=== PATIENT | female | born 2000 | race Caucasian/White ===

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

== ENCOUNTER → 2020-02-25 | Outpatient (CLI) | payer OTHER | LOC: US 14:48 | DX: Z34.03 Encounter for supervision of normal first pregnancy, third trimester (principal); Z3A.38 38 weeks gestation of pregnancy ==

== ENCOUNTER 2021-02-25 10:08 | Emergency (ER) | payer OTHER | END 2021-02-25 11:52 | disposition home or self-care (01) | LOC: ED 10:08 | DX: R21 Rash and other nonspecific skin eruption (principal) ==

== ENCOUNTER → 2021-03-08 | Outpatient (CLI) | payer OTHER | END | disposition home or self-care (01) | LOC: US 11:08 | PROVIDERS: ATTEND Nurse Practitioner Women's Health | DX: Z34.81 Encounter for supervision of other normal pregnancy, first trimester (principal); Z33.1 Pregnant state, incidental; Z3A.08 8 weeks gestation of pregnancy ==

== ENCOUNTER 2021-05-10 14:54 | Emergency (ER) | payer OTHER ==
[~2021-05-10] VITALS: Wt 81.6 kg
[2021-05-10] MEDS ORDERED: CLINDAMYCIN HC300 MG PO (18:24)
== END 2021-05-10 18:47 | disposition home or self-care (01) ==
LOC: ED 14:54
DX: L02.411 Cutaneous abscess of right axilla (principal)

== ENCOUNTER → 2021-05-12 | Outpatient (CLI) | payer OTHER ==
[~2021-05-12] MED LIST changes: +CLINDAMYCIN HC300 MG PO
== END ==
LOC: WOUNDCARE 11:52
PROVIDERS: ATTEND Nurse Practitioner
DX: T81.89XA Other complications of procedures, not elsewhere classified, initial encounter (principal); L02.411 Cutaneous abscess of right axilla; L73.2 Hidradenitis suppurativa; Z79.899 Other long term (current) drug therapy; Y83.8 Other surgical procedures as the cause of abnormal reaction of the patient, or of later complication, without mention of misadventure at the time of the procedure; Y92.238 Other place in hospital as the place of occurrence of the external cause

== ENCOUNTER 2022-08-04 16:26 | Emergency (ER) | payer OTHER ==
[~2022-08-04] VITALS: Ht 165.1 cm; Wt 83.9 kg
[2022-08-04 17:25] LABS: BILIRUBIN Negative (Negative); BLOOD 3+ (Negative); CLARITY Clear (Clear); COLOR Yellow (Yellow); GLUCOSE Negative (Negative); KETONE Trace (Negative); LEUKO ESTERASE Negative (Negative); NITRITE Negative (Negative); SPECIFIC GRAVITY >= 1.030 (1.001-1.030); UROBILINOGEN 0.2 E.U./dl (0.0-1.0)
[2022-08-04 17:41] LABS: BASO % 0.5 % (0.0-1.0); EOS # 0.2 10*3/uL (0.0-0.4); EOS % 3.2 % (1.0-4.0); HEMATOCRIT 37.4 % (37.0-47.0); LYMPH # 1.7 10*3/uL (1.3-4.4); LYMPH % 28.8 % (27.0-41.0); MEAN CELL VOLUME 89.9 fl (81.0-99.0); MEAN CORPUSCULAR HGB 29.3 pg (27.0-31.0); MEAN CORPUSCULAR HGB CONC 32.6 g/dl (33.0-37.0); MEAN PLATELET VOLUME 9.3 fl (9.6-12.3); MONO # 0.4 10*3/uL (0.1-1.0); MONO % 6.1 % (3.0-9.0); NEUT # 3.6 10*3/uL (2.3-7.9); NEUT % 61.1 % (47.0-73.0); PLATELET COUNT AUTOMATED 286 10*3/uL (130-400); RED BLOOD COUNT 4.16 10*6/uL (4.10-5.10); RED CELL DISTRI WIDTH 13.5 % (0-14.5); WHITE BLOOD COUNT 5.9 10*3/uL (4.8-10.8)
[2022-08-04 18:00] LABS: RBC TNTC rbc/hpf (0-2)
[2022-08-04 18:01] LABS: ALKALINE PHOSPHATASE 127 U/L (45-117); BUN 18 mg/dl (7-24); CHLORIDE 110 mmol/L (98-107); POTASSIUM 3.8 mmol/L (3.5-5.1); SGOT/AST 6 IU/L (3-35); SGPT/ALT 17 U/L (12-78); SODIUM 142 mmol/L (136-145); TOTAL PROTEIN 7.3 gm/dL (6.4-8.2)
[2022-08-04] MEDS ORDERED: PROVERA10 MG PO (18:26)
== END 2022-08-04 18:41 | disposition home or self-care (01) ==
LOC: ED 16:26
PROVIDERS: Emergency Medicine
DX: N93.8 Other specified abnormal uterine and vaginal bleeding (principal)

== ENCOUNTER → 2023-07-03 | Outpatient (CLI) | payer OTHER ==
[~2023-07-03] MED LIST changes: +PROVERA10 MG PO
== END | disposition home or self-care (01) ==
LOC: US 10:30
PROVIDERS: ATTEND Nurse Practitioner Family
DX: E04.9 Nontoxic goiter, unspecified (principal)

== ENCOUNTER → 2023-12-28 | Outpatient (CLI) | payer OTHER ==
[2023-12-28 11:24] LABS: BUN 10 mg/dl (9-23); CHLORIDE 107 mmol/L (98-107); FREE T4 1.34 ng/dl (0.89-1.76)
== END | disposition home or self-care (01) ==
LOC: LAB 10:11
PROVIDERS: ATTEND Internal Medicine
DX: E55.9 Vitamin D deficiency, unspecified (principal); O90.5 Postpartum thyroiditis; E66.9 Obesity, unspecified; E03.9 Hypothyroidism, unspecified

== ENCOUNTER → 2024-04-17 | Outpatient (CLI) | payer OTHER ==
[2024-04-17 17:01] LABS: FREE T4 1.22 ng/dl (0.89-1.76)
[2024-04-20 17:06] LABS: THYROGLOBULIN ANTIBODY 41.2 IU/mL (0.0-0.9)
== END | disposition home or self-care (01) ==
LOC: LAB 16:07
PROVIDERS: ATTEND Internal Medicine
DX: O90.5 Postpartum thyroiditis (principal); E03.9 Hypothyroidism, unspecified; E55.9 Vitamin D deficiency, unspecified

== ENCOUNTER → 2024-07-27 | Outpatient (CLI) | payer OTHER ==
[2024-07-27 13:15] LABS: FREE T4 1.33 ng/dl (0.89-1.76)
== END | disposition home or self-care (01) ==
LOC: LAB 12:12
PROVIDERS: ATTEND Internal Medicine
DX: E55.9 Vitamin D deficiency, unspecified (principal); E04.9 Nontoxic goiter, unspecified

== ENCOUNTER → 2024-12-08 | Outpatient (CLI) | payer OTHER ==
[2024-12-08 12:57] LABS: VITAMIN D, 25-HYDROXY 38.8 ng/mL (30-100)
[2024-12-08 12:59] LABS: BUN 12 mg/dl (9-23); CHLORIDE 104 mmol/L (98-107); FREE T4 3.34 ng/dl (0.89-1.76)
== END | disposition home or self-care (01) ==
LOC: LAB 12:06
PROVIDERS: ATTEND Internal Medicine
DX: E03.9 Hypothyroidism, unspecified (principal); E55.9 Vitamin D deficiency, unspecified; E61.1 Iron deficiency